=== PATIENT | female | born 1995 | race African-American/Black ===

== ENCOUNTER 2022-05-16 10:39 | Observation (INO) | payer MEDICAID, SELFPAY ==
[2022-05-16] VITALS (12 sets, daily range): BP systolic 101–132; BP diastolic 56–100; PULSE 67–88; RESP 12–16; TEMP 36.2–37.2; O2SAT 100
--- NOTE | 2022-05-16 10:43 | PC.NURSE ---
26yr, F presents to the ED via EMS from home with c/o nausea and vomiting for 8 days now. Patient reports she can't hold anything down and is 11 weeks . Patient denies any known sick contacts. Patient reports the pain is in her lower left abdomen. Patient reports she doesn't have n OB at this time. EMS administered 4mg Zofran en route which has helped with patient's nausea.
--- NOTE | 2022-05-16 10:50 | PC.NURSE ---
Patient reports nausea and vomiting with other pregnancies but never to this extent.
[2022-05-16 11:10] LABS: Hematocrit 33.3 % (37.0-47.0); Hemoglobin 10.5 g/dL (12.0-15.0); Mean Corpuscular HGB Conc 31.5 g/dl (32-36); Mean Corpuscular Hemoglobin 22.8 pg (26-34); Mean Corpuscular Volume 72.4 fl (80-100); Mean Platelet Volume 10.8 fl (7.4-10.4); Platelet Count Result 256 k/mm3 (150-375); Red Cell Distribution Width 15.2 % (11.5-14.5); White Blood Count 9.8 K/mm3 (4.5-10.0)
[2022-05-16 11:20] LABS: Alanine Aminotransferase 88 U/L (6-35); Albumin Level 3.7 g/dL (3.5-5.1); Alkaline Phosphatase 159 U/L (38-126); Anion Gap 11 mmol/L (8-16); Aspartate Amino Transferase 51 U/L (14-36); Bilirubin,Total 1.2 mg/dL (0.2-1.3); Blood Urea Nitrogen 10 mg/dL (7-17); Calcium 9.1 mg/dL (8.4-10.2); Carbon Dioxide 22 mmol/L (22-30); Chloride 104 mmol/L (98-107); Estimated Glomerular Filt Rate > 60; Glucose 103 mg/dL (65-110); Lipase 202 U/L (23-300); Potassium 3.3 mmol/L (3.4-5.0); Sodium 137 mmol/L (137-145)
[2022-05-16] MEDS: SODIUM CHLORIDE 0.9% IV 1,000 ML 999 ML IV CONT (11:20)
[2022-05-16] MEDS: PROMETHAZINE HCL 25 MG/ML AMPUL 12.5 MG IV PUSH (11:21)
[2022-05-16 11:28] LABS: Appearance Urine Clear (Clear); Bilirubin Urine 3+ (Negative); Glucose Urine UA Negative (Negative); Ketones Urine 4+ mg/dL (Negative); Leukocyte Esterase Ur Negative LEU/UL (Negative); Nitrate Urine Negative (Negative); Protein Urine 2+ mg/dL (Negative); Specific Grav Ur >= 1.030 (1.001-1.035); pH Urine 6.5 (5.0-9.0)
[2022-05-16 11:31] LABS: Band Neutrophils Percent 1 % (0-6); Eosinophils Absolute Manual 0.19 K/mm3 (0.02-0.5); Eosinophils Percent Manual 2 % (0-4); Lymphocytes Absolute Manual 1.17 K/mm3 (1.1-4.5); Monocytes Absolute Manual 0.19 K/mm3 (0.1-0.90); Monocytes Percent Manual 2 % (3-9); Neutrophils Absolute Manual 8.23 K/mm3 (1.7-7.2); Neutrophils Percent Manual 83 % (46-73); Platelet Estimate Adequate (Adequate); Total Cells Counted 100
[2022-05-16 11:32] LABS: Anisocytosis 1+ (NORMAL); Ovalocytes 1+ (NORMAL); Poikilocytosis 1+ (NORMAL); Schistocytes None Seen (NORMAL); Target Cells 1+ (NORMAL)
[2022-05-16 11:33] LABS: Mucus Urine Moderate /lpf; Squamous Epithelial Cell Urine Many /hpf (Few)
--- NOTE | 2022-05-16 11:34 | PC.NURSE ---
1100 - Assumed pt care from Cady Valentine RN
[2022-05-16 11:38] LABS: Add Urine Microscopic? YES; Blood Urine Trace-Intact (Negative); Color Urine Dark Yellow (Yellow)
--- NOTE | 2022-05-16 12:07 | ED.NAVMDI ---
HPI - Nausea/Vomiting/Diarrhea General Chief complaint: Nausea/Vomiting/Diarrhea Stated complaint: n/v and 11 weeks Time Seen by Provider: 05/16/22 10:53 History of Present Illness HPI Narrative: Patient is a 26-year-old female who presents ER with nausea and vomiting. Ongoing for 2 days. She reports she is 11 weeks . G4, P2. She does not currently have a OB. She was hospitalized about a month ago for similar symptoms at the beginning of her . She required hydration. She was unable to keep down home antiemetics. No urinary frequency urgency or dysuria. No vaginal bleeding. She did have a diagnostic ultrasound to prove that she had an IUP. Related Data Allergies Allergy/AdvReac Type Severity Reaction Status Date / Time No Known Allergies Allergy Verified 05/16/22 14:53 Review of Systems Review of Systems: All systems reviewed & are unremarkable except as noted in HPI and below Constitutional: Constitutional: Denies chills, Reports fatigue and Denies fever(s) ENT: Denies nasal congestion and Denies sore throat Cardiovascular: Cardiovascular: Denies chest pain, Denies rapid heart rate and Denies radiating jaw, neck or arm pain Respiratory: Respiratory: Denies cough and Denies dyspnea Gastrointestinal: Gastrointestinal: Denies abdominal pain, Reports nausea and Reports vomiting Genitourinary: Genitourinary: Denies abnormal vaginal bleeding, Denies nocturia, Denies dysuria and Denies flank pain PMFSH Past Medical History Medical History (Updated 05/16/22 @ 17:53 by Noe Conrad MD) Healthy female adult Surgical History Surgical History (Updated 05/16/22 @ 17:48 by Noe Conrad MD) No history of previous surgery Social History Social History (Updated 05/16/22 @ 17:48 by Noe Conrad MD) Smoking status: Never smoker Exam Narrative: GENERAL: Well-appearing, well-nourished, and in no acute distress. HEAD: Normocephalic, atraumatic. EYES: PERRL and EOMI. ENT: Mucous membranes moist. CHEST: Clear to auscultation. No respiratory distress. HEART: Regular rate and rhythm. Normal peripheral pulses. ABDOMEN: Soft, nontender, nondistended. EXTREMITIES: Normal range of motion. No edema. SKIN: Warm, dry, no rash. NEURO: Alert and oriented x3. PSYCH: Normal mood and affect. Course Course Emergency Course: Patient still having emesis after Zofran and Phenergan. Discussed case with on-call OB Dr. Membreno. He will accept the patient for hydration and treatment of intractable vomiting. Vital Signs Vital signs: Vital Signs Temperature 97.1 F L 05/16/22 10:35 Pulse Rate 85 05/16/22 10:35 Respiratory Rate 14 05/16/22 10:35 Blood Pressure 116/91 H 05/16/22 10:35 Pulse Oximetry 100 05/16/22 10:35 Oxygen Delivery Room Air 05/16/22 10:35 Temperature 97.1 F L 05/16/22 10:35 Pulse Rate 73 05/16/22 14:02 Respiratory Rate 14 05/16/22 14:02 Blood Pressure 132/100 H 05/16/22 13:46 Pulse Oximetry 100 05/16/22 11:19 Oxygen Delivery Room Air 05/16/22 10:35 MDM - Nausea/Vomiting/Diarrhea Lab Data Result diagrams: 05/16/22 10:56 05/16/22 10:56 Labs: Lab Results 05/16/22 05/16/22 05/16/22 Range/Units 10:56 10:56 11:19 WBC 9.8 (4.5-10.0) K/mm3 RBC 4.60 (4.2-5.4) M/mm3 Hgb 10.5 L (12.0-15.0) g/dL Hct 33.3 L (37.0-47.0) % MCV 72.4 L (80-100) fl MCH 22.8 L (26-34) pg MCHC 31.5 L (32-36) g/dl RDW 15.2 H (11.5-14.5) % Plt Count 256 (150-375) k/mm3 MPV 10.8 H (7.4-10.4) fl Immature Gran % (Auto) Not Reportable Neut % (Auto) Not Reportable Lymph % (Auto) Not Reportable [place] % (Auto) Not Reportable Eos % (Auto) Not Reportable Baso % (Auto) Not Reportable Lymph # (Auto) Not Reportable [place] # (Auto) Not Reportable Eos # (Auto) Not Reportable Baso # (Auto) Not Reportable Abs Immat Gran (auto) Not Re
[2022-05-16] MEDS: ONDANSETRON INJ 4 MG/2 ML VIAL IV PUSH ×2 (15:05→20:15)
[2022-05-16] MEDS: DEXTROSE 5%/0.9% SOD CHL 1,000 ML 100 ML IV CONT (17:34)
[2022-05-17 00:07] VITALS: BP 112/79; PULSE 69
[2022-05-17 04:44] VITALS: BP 119/62; PULSE 81
[2022-05-17 04:46] VITALS: BP 107/72; PULSE 73; TEMP 36.8
[2022-05-17] MEDS: DEXTROSE 5%/0.9% SOD CHL 1,000 ML 100 ML IV CONT (05:20)
[2022-05-17 06:38] VITALS: BP 143/91; PULSE 78
[2022-05-17 06:56] VITALS: RESP 17; TEMP 36.9
[2022-05-17 07:00] VITALS: BMI 33.8
[2022-05-17 07:19] VITALS: BP 129/78; PULSE 79
--- NOTE | 2022-05-17 07:46 | LDADM ---
This patient, Rosalva Robbins, was admitted to [facility] on 05/16/22 at 16:07. Plans for labor, pain management and were discussed with patient. Patient/family oriented to hospital policies and general routines including ID bracelet, bed and alarms, visiting hours, pain management, procedures, bathroom and other care routines, personal items, smoking policy, room service/diet and guest tray routines, infant security routines, and visiting hours. Patient/Family are encouraged to report perceived risks to care and to ask questions if they do not understand what they are told or what they should do. See [facility]BIX for further documentation.
--- NOTE | 2022-06-08 20:08 | P.PNOB_ITS ---
OB - Triage/Final Diagnosis Visit Information Comments/Additional reasons for admission: I have assessed the risk for this patient, Rosalva Robbins, and determined that she would benefit from observation care. Evaluation Laboratory results: Laboratory Tests 05/16/22 05/16/22 05/16/22 10:56 10:56 11:19 WBC 9.8 RBC 4.60 Hgb 10.5 L Hct 33.3 L MCV 72.4 L MCH 22.8 L MCHC 31.5 L RDW 15.2 H Plt Count 256 MPV 10.8 H Immature Gran % (Auto) Not Reportable Neut % (Auto) Not Reportable Lymph % (Auto) Not Reportable [place] % (Auto) Not Reportable Eos % (Auto) Not Reportable Baso % (Auto) Not Reportable Lymph # (Auto) Not Reportable [place] # (Auto) Not Reportable Eos # (Auto) Not Reportable Baso # (Auto) Not Reportable Abs Immat Gran (auto) Not Reportable Absolute Neuts (auto) Not Reportable Absolute Nucleated RBC Not Reportable Total Counted 100 Neutrophils % (Manual) 83 H Band Neutrophils % 1 Lymphocytes % (Manual) 12.0 L Monocytes % (Manual) 2 L Eosinophils % (Manual) 2 Nucleated RBC % Not Reportable Abs Neuts (Manual) 8.23 H Abs Lymphs (Manual) 1.17 Abs Monocytes (Manual) 0.19 Absolute Eos (Manual) 0.19 Platelet Estimate Adequate Poikilocytosis 1+ Anisocytosis 1+ Target Cells 1+ Ovalocytes 1+ Schistocytes None seen Sodium 137 Potassium 3.3 L Chloride 104 Carbon Dioxide 22 Anion Gap 11 BUN 10 Creatinine 0.50 L Estim Creat Clear Calc Not Reportable Estimated GFR > 60 Glucose 103 Calcium 9.1 Total Bilirubin 1.2 AST 51 H ALT 88 H Alkaline Phosphatase 159 H Total Protein 7.0 Albumin 3.7 Lipase 202 Urine Color Dark yellow Urine Appearance Clear Urine pH 6.5 Ur Specific [place] >= 1.030 Urine Protein 2+ H Urine Glucose (UA) Negative Urine Ketones 4+ H Ur Blood (Man) Trace-intact Urine Nitrate Negative Urine Bilirubin 3+ H Urine Urobilinogen 2.0 H Leukocyte Esterase Rfl Negative Urine RBC 6-10 H Urine WBC 4-6 H Ur Squamous Epith Cells Many H Urine Mucus Moderate H Final Diagnosis (1) Intractable vomiting: Code(s): R11.10 - Vomiting, unspecified Status: Acute
== END 2022-05-17 12:33 | disposition home or self-care (01) ==
LOC: ANHED 11:00 → ANHOBPP 17:08
PROVIDERS: Admitting Provider Obstetrics & Gynecology; Emergency Provider Emergency Medicine; Visit Provider Obstetrics & Gynecology
DX: O21.9 Vomiting of pregnancy, unspecified (principal); Z3A.11 11 weeks gestation of pregnancy
CPT/HCPCS: 36415; 80053; 81001; 81025; 83690; 85025; 96360; 96361; 96374; 96375; 96376; 99285; G0378; J2405; J2550; J7030; J7042